=== PATIENT | female | born 1990 | race African-American/Black ===

== ENCOUNTER 2019-08-12 02:47 | Inpatient (IN) ==
[2019-08-12] MEDS ORDERED: MEPERIDINE 50 MG/1 ML VIAL IV PRN (03:04)
[2019-08-12] MEDS ORDERED: oxyCODONE/ACETAMINOPHEN 5-325 MG TABLET PO PRN ×2 (03:04→15:33)
[2019-08-12] MEDS ORDERED: ONDANSETRON 4 MG/2 ML VIAL IV PRN (03:04)
[2019-08-12] MEDS ORDERED: BUTORPHANOL 2 MG/ML VIAL IV PRN (03:17)
[2019-08-12 03:23] LABS: Basophils % 0.1 % (0.0-0.8); Eosinophils # 0.1 10*3/uL (0.0-0.87); Eosinophils % 1.4 % (0.00-10.9); Hematocrit 34.5 VOL% (35.7-47.0); Hemoglobin 11.4 GM/DL (12.0-16.0); Immature Granulocytes % 0.7 %; Immature Granulocytes Absolute 0.06 #; Lymphocytes # 2.4 10*3/uL (1.4-4.0); Lymphocytes % 27.1 % (21.3-54.2); Mean Corpuscular Volume 82.3 FL (87-102); Mean Platelet Volume 11.1 FL (9.6-12.0); Monocytes % 9.8 % (1.7-12.7); Neutrophils % 60.9 % (38.7-73.9); Platelet Count 180 T/CUMM (130-400); Red Blood Count 4.19 MC/CUMM (3.8-5.5); Red Cell Distribution Width 12.9 % (9.3-17.3); White Blood Count 8.7 T/CUMM (4-12)
[2019-08-12] MEDS ORDERED: OXYTOCIN/LR 20 UNIT/1,000 ML BAG IV SCH (03:30)
[2019-08-12 03:42] LABS: Alanine Aminotransferase 15 U/L (13-56); Albumin 2.4 G/DL (3.4-5.0); Alkaline Phosphatase 126 U/L (45-117); Aspartate Amino Transferase 13 U/L (0-37); Bilirubin,Total < 0.39 MG/DL (0.2-1.0); Blood Urea Nitrogen 9 MG/DL (7-18); Calcium 8.9 MG/DL (8.5-10.1); Estimated Glom Filtration Rate 116 ML/MIN; Glucose 93 MG/DL (74-106); Osmolality,Calculated 273.7 MOS/KG (273-304); Total Protein 6.4 G/DL (6.4-8.3)
[2019-08-12] MEDS ORDERED: ePHEDrine 50 MG/ML AMP IV PRN (06:36)
[2019-08-12] MEDS ORDERED: NALOXONE 0.4 MG/ML VIAL IV PRN (06:36)
[2019-08-12] MEDS ORDERED: diphenhydrAMINE 50 MG/1 ML VIAL IV PRN ×2 (06:36)
[2019-08-12] MEDS ORDERED: hydrOXYzine HCL 25 MG/1 ML VIAL IM PRN (06:36)
[2019-08-12] MEDS ORDERED: FAMOTIDINE 20 MG/2 ML VIAL IV ONE (06:39)
[2019-08-12] MEDS ORDERED: CITRIC ACID/SODIUM CITRATE 30 ML UDCUP PO ONE (06:39)
[2019-08-12] MEDS ORDERED: fentaNYL 2 MCG/ROPIV 0.2% EPID 100 ML EPIDURAL SCH (07:00)
[2019-08-12] MEDS: LACTATED RINGERS 1,000 ML IV SCH ×2 (07:20→07:48)
[2019-08-12 09:16] LABS: Apearance,Urine CLEAR (Clear); Bilirubin,Urine Negative (Negative); Blood, Urine Negative (Negative); Glucose,Urine (UA) Negative (Negative); Ketones,Urine Negative (Negative); Nitrite,Urine Negative (Negative); Protein,Urine Negative; Squamous Epithelial Cell,Urine Occasional /HPF (0-10); Urine Color Straw (Yellow); Urine Specific Gravity 1.008 (1.001-1.035); Urine Urobilinogen < 2.0 EU/DL (0.2-1.0)
[2019-08-12] MEDS ORDERED: miSOPROStoL 200 MCG TABLET ONE (10:08)
[2019-08-12] MEDS ORDERED: METHYLERGONOVINE 0.2 MG/1 ML AMP ONE (10:08)
[2019-08-12 10:48] LABS: Cord Arterial Blood HCO3 20.5 MMOL/L
[2019-08-12 10:49] LABS: Cord Venous Blood HCO3 24.1 MMOL/L; Cord Venous Blood PCO2 43.7 MMHG; Cord Venous Blood PO2 32.9 MMHG
[2019-08-12] MEDS ORDERED: LANOLIN 50% CREAM 0.3 OZ TUBE TOP PRN (15:33)
[2019-08-12] MEDS ORDERED: OXYTOCIN/LR 20 UNIT/1,000 ML BAG IV ONE (15:33)
[2019-08-12] MEDS ORDERED: IBUPROFEN 800 MG TABLET PO PRN (15:33)
[2019-08-12] MEDS ORDERED: ACETAMINOPHEN 325 MG TABLET PO PRN (15:33)
[2019-08-12] MEDS ORDERED: MEASLES/MUMPS/RUBELLA VACCINE 0.5 ML VIAL SUBCUT ONE (15:33)
[2019-08-12] MEDS ORDERED: HYDROCORTISONE 2.5% RECTAL CREAM 30 GM TUBE TOP PRN (15:33)
[2019-08-12] MEDS ORDERED: RHO(D) IMMUNE GLOBULIN 300 MCG SYRINGE IM ONE (15:33)
[2019-08-12] MEDS ORDERED: WITCH HAZEL PADS 100/JAR TOP PRN (15:33)
[2019-08-12] MEDS ORDERED: BENZOCAINE 20%/MENTHOL 0.5% SPRAY 56 GM CAN TOP PRN (15:33)
[2019-08-12] MEDS ORDERED: DIPH/TET/ACEL PERT BOOSTER VACCINE 0.5 ML VIAL IM ONE (15:33)
[2019-08-12] MEDS ORDERED: BISACODYL 10 MG SUPP RECTAL PRN (15:33)
[2019-08-12] MEDS: oxyCODONE/ACETAMINOPHEN 5-325 MG TABLET PO PRN (16:58)
[2019-08-12] MEDS: DOCUSATE SODIUM 100 MG CAPSULE PO SCH (21:31)
[2019-08-13] MEDS: oxyCODONE/ACETAMINOPHEN 5-325 MG TABLET PO PRN ×3 (00:06→17:42)
[2019-08-13 06:06] LABS: Basophils % 0.3 % (0.0-0.8); Eosinophils # 0.2 10*3/uL (0.0-0.87); Eosinophils % 1.5 % (0.00-10.9); Hematocrit 32.4 VOL% (35.7-47.0); Hemoglobin 10.7 GM/DL (12.0-16.0); Immature Granulocytes % 0.7 %; Immature Granulocytes Absolute 0.08 #; Lymphocytes # 2.5 10*3/uL (1.4-4.0); Lymphocytes % 22.9 % (21.3-54.2); Mean Corpuscular Volume 82.7 FL (87-102); Mean Platelet Volume 11.9 FL (9.6-12.0); Monocytes % 8.1 % (1.7-12.7); Neutrophils % 66.5 % (38.7-73.9); Platelet Count 155 T/CUMM (130-400); Red Blood Count 3.92 MC/CUMM (3.8-5.5); Red Cell Distribution Width 12.8 % (9.3-17.3); White Blood Count 10.8 T/CUMM (4-12)
[2019-08-13] MEDS: DOCUSATE SODIUM 100 MG CAPSULE PO SCH ×2 (09:06→21:56)
[2019-08-14 07:20] VITALS: BP 122/82
[2019-08-14] MEDS: DOCUSATE SODIUM 100 MG CAPSULE PO SCH (08:27)
== END 2019-08-14 12:00 | disposition home or self-care (01) | DRG 560 ==
LOC: N.LDOUT 02:47 → N.LD 02:48 → N.OB 13:56
PROVIDERS: ADMIT Obstetrics & Gynecology; ATTEND Obstetrics & Gynecology